=== PATIENT | male | born 1965 | race Asian ===

== ENCOUNTER 2022-02-11 17:10 | Emergency (ER) | payer SELFPAY ==
[~2022-02-11] VITALS: Ht 175.3 cm; Wt 70.3 kg
--- NOTE | 2022-02-11 17:36 | NUR ---
TO ER BED 19, BIBS C/O ABD PAIN W/ NAUSEA SINCE YESTERDAY, AAOX3, BREATHING EVEN AND NON LABORED.
--- NOTE | 2022-02-11 17:59 | NUR ---
UNABLE TO PROVIDE URINE AT THIS TIME
[2022-02-11 18:24] LABS: BILIRUBIN,URINE NEGATIVE (NEGATIVE); COLOR,URINE YELLOW (YELLOW); LEUKOCYTE ESTERASE ,URINE NEGATIVE (NEGATIVE); NITRITE, URINE NEGATIVE (NEGATIVE); PH,URINE 6.5 (5.0-8.0); PROTEIN,URINE NEGATIVE (NEGATIVE); UGLUCOSE NEGATIVE (NEGATIVE)
[2022-02-11 18:29] LABS: BASOPHILS % (AUTO) 0.9 % (0.0-2.0); EOSINOPHILS % (AUTO) 2.7 % (0.0-6.0); HEMATOCRIT 40 % (39-51); HEMOGLOBIN 12.6 g/dL (13.5-17.5); LYMPHOCYTES # (AUTO) 1.4 K/uL (0.8-4.8); MEAN CORPUSCULAR HGB CONC 32 g/dl (31.0-36.0); MEAN CORPUSCULAR VOLUME 90 fL (80-96); MONOCYTES # (AUTO) 0.5 K/uL (0.1-1.30); MONOCYTES % (AUTO) 9.1 % (2.0-12.0); NEUTROPHILS # (AUTO) 3.6 K/uL (1.8-8.9); NEUTROPHILS % (AUTO) 63.3 % (43.0-81.0); PLATELET COUNT (AUTO) 175 K/uL (150-450); RED BLOOD CELL COUNT(AUTO) 4.39 MIL/uL (4.5-6.0); WHITE BLOOD COUNT (AUTO) 5.7 K/uL (4.3-11.0)
[2022-02-11 18:40] LABS: CALCIUM, SERUM 8.7 mg/dL (8.5-10.1); CREATININE 1.2 mg/dL (0.6-1.3); POTASSIUM 4.2 mmol/L (3.5-5.1)
[2022-02-11 18:45] LABS: ALBUMIN 3.3 g/dL (3.4-5.0); BILIRUBIN,DIRECT 0.1 mg/dL (0.0-0.2); BILIRUBIN,TOTAL 0.4 mg/dL (0.2-1.0)
[2022-02-11 18:59] LABS: BACTERIA,URINE None seen /HPF (None Seen); RBC,URINE 0-2 /HPF (0-2); SQUAMOUS EPITHELIAL CELL,UR 0-2 /HPF (None Seen); WBC,URINE 0-2 /HPF (0-3)
--- NOTE | 2022-02-11 19:00 | NUR ---
TAKEN TO CT VIA WHEELCHAIR
[2022-02-11] MEDS ORDERED: IOHEXOL-300 100 ML VIAL IV ONE (19:01)
[2022-02-11] MEDS ORDERED: CT SWABBABLE VALVE TRANS SET 1 EA INFUS.SET MC ONE (19:01)
[2022-02-11] MEDS ORDERED: IV NS 0.9% 250 ML IV ONE (19:01)
[2022-02-11] MEDS ORDERED: ONDANSETRON HCL/PF 4 MG/2 ML VIAL IV ONE (20:00)
[2022-02-11] MEDS ORDERED: MORPHINE SULFATE INJ 2 MG/ML DISP.SYRIN IV ONE (20:00)
[2022-02-11] MEDS ORDERED: ONDANSETRON HCL/PF 4 MG/2 ML VIAL ONE (20:05)
[2022-02-11] MEDS ORDERED: MORPHINE SULFATE INJ 4 MG/ML DISP.SYRIN ONE (20:05)
--- NOTE | 2022-02-11 20:11 | NUR ---
WARM BLANKETS PROVIDED FOR COMFORT
[2022-02-11] MEDS ORDERED: HYDR-4209 PO (20:35)
[2022-02-11] MEDS ORDERED: ONDA4TAB5 PO (20:35)
[2022-02-11 20:48] VITALS: BP 140/70
--- NOTE | 2022-02-11 20:48 | NUR ---
Patient discharged to home in stable condition. Written and verbal after care instructions given. Patient verbalizes understanding of instruction.
== END 2022-02-11 20:48 | disposition home or self-care (01) ==
LOC: ER 17:14
DX: K40.90 Unilateral inguinal hernia, without obstruction or gangrene, not specified as recurrent (principal); R11.0 Nausea; K74.60 Unspecified cirrhosis of liver; F17.200 Nicotine dependence, unspecified, uncomplicated; Z59.00 Homelessness unspecified
CPT/HCPCS: 99285; 74177; 96374; 96375; 85025; 80048; 83690; 80076; 81001; 36415; J2270; J2405; J7050; Q9967

== ENCOUNTER 2022-02-15 07:19 | Emergency (ER) | payer SELFPAY ==
[~2022-02-15] VITALS: Ht 175.3 cm; Wt 72.6 kg
[~2022-02-15 07:19] MED LIST: HYDR-4209 PO; ONDA4TAB5 PO
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
--- NOTE | 2022-02-15 08:15 | NUR ---
DR PETE AT BEDSIDE FOR EVAL.
[2022-02-15] MEDS ORDERED: KETOROLAC TROMETHAMINE INJ 30 MG/ML VIAL IM ONE (08:30)
[2022-02-15] MEDS ORDERED: KETOROLAC TROMETHAMINE INJ 30 MG/ML VIAL ONE (08:55)
[2022-02-15] MEDS ORDERED: TRAM-351 PO (09:16)
[2022-02-15] MEDS ORDERED: IBUP-1957 PO (09:16)
--- NOTE | 2022-02-15 09:45 | NUR ---
Patient discharged to home in stable condition. Written and verbal after care instructions given. Patient verbalizes understanding of instruction.
[2022-02-15 09:58] VITALS: BP 146/98
== END 2022-02-15 09:59 | disposition home or self-care (01) ==
LOC: ER 07:22
DX: S30.1XXA Contusion of abdominal wall, initial encounter (principal); F17.200 Nicotine dependence, unspecified, uncomplicated; Z59.00 Homelessness unspecified; Z79.899 Other long term (current) drug therapy; W18.39XA Other fall on same level, initial encounter; Y93.89 Activity, other specified; Y92.89 Other specified places as the place of occurrence of the external cause; Y99.8 Other external cause status
CPT/HCPCS: 99283; 96372; J1885

== ENCOUNTER 2022-02-18 08:41 | Emergency (ER) | payer MEDICAID ==
[~2022-02-18] VITALS: Ht 175.3 cm; Wt 70.3 kg
[~2022-02-18 08:41] MED LIST changes: +IBUP-1957 PO; +TRAM-351 PO
[2022-02-18 09:19] LABS: BASOPHILS % (AUTO) 0.7 % (0.0-2.0); EOSINOPHILS % (AUTO) 2.1 % (0.0-6.0); HEMATOCRIT 39 % (39-51); HEMOGLOBIN 12.7 g/dL (13.5-17.5); LYMPHOCYTES # (AUTO) 1.2 K/uL (0.8-4.8); LYMPHOCYTES % (AUTO) 21.7 % (20.0-44.0); MEAN CORPUSCULAR HGB CONC 32 g/dl (31.0-36.0); MEAN CORPUSCULAR VOLUME 90 fL (80-96); MONOCYTES # (AUTO) 0.4 K/uL (0.1-1.30); MONOCYTES % (AUTO) 7.6 % (2.0-12.0); NEUTROPHILS # (AUTO) 3.7 K/uL (1.8-8.9); NEUTROPHILS % (AUTO) 67.9 % (43.0-81.0); PLATELET COUNT (AUTO) 149 K/uL (150-450); RED BLOOD CELL COUNT(AUTO) 4.38 MIL/uL (4.5-6.0); WHITE BLOOD COUNT (AUTO) 5.4 K/uL (4.3-11.0)
[2022-02-18 09:27] LABS: CALCIUM, SERUM 8.4 mg/dL (8.5-10.1); CREATININE 1.1 mg/dL (0.6-1.3); POTASSIUM 5.3 mmol/L (3.5-5.1)
[2022-02-18 09:40] LABS: ALBUMIN 3.2 g/dL (3.4-5.0); BILIRUBIN,TOTAL 0.7 mg/dL (0.2-1.0); TOTAL PROTEIN, SERUM 7.1 g/dL (6.4-8.2)
[2022-02-18 09:52] LABS: BILIRUBIN,DIRECT 0.1 mg/dL (0.0-0.2)
[2022-02-18] MEDS ORDERED: HYDROCODONE/APAP 5/325MG TABLET PO ONE (10:00)
[2022-02-18 10:57] VITALS: BP 146/108
== END 2022-02-18 10:57 | disposition home or self-care (01) ==
LOC: ER 08:45
DX: G89.29 Other chronic pain (principal); R10.9 Unspecified abdominal pain; K74.60 Unspecified cirrhosis of liver; K40.90 Unilateral inguinal hernia, without obstruction or gangrene, not specified as recurrent; E87.5 Hyperkalemia; F17.200 Nicotine dependence, unspecified, uncomplicated; Z59.00 Homelessness unspecified; Z79.899 Other long term (current) drug therapy
CPT/HCPCS: 36415; 80048-TC; 80076-TC; 83690-TC; 85025-TC

== ENCOUNTER 2022-02-18 14:58 | Emergency (ER) | payer MEDICAID ==
[~2022-02-18] VITALS: Ht 165.1 cm; Wt 63.5 kg
[2022-02-18 15:01] VITALS: BP 144/93
--- NOTE | 2022-02-18 15:14 | NUR ---
pt left, not seen by ermd provider.
== END 2022-02-18 15:18 | disposition left against medical advice (07) ==
LOC: ER 15:00
DX: Z53.21 Procedure and treatment not carried out due to patient leaving prior to being seen by health care provider (principal)

== ENCOUNTER 2022-03-27 03:19 | Emergency (ER) | payer MEDICAID ==
[~2022-03-27] VITALS: Ht 175.3 cm; Wt 72.6 kg
--- NOTE | 2022-03-27 04:27 | NUR ---
Nadia abraham in [facility] - 03/27/22 at 0438 by GIOVANY FREELANCE DATA ENTRY AT PT'S BEDSIDE
[2022-03-27] MEDS ORDERED: MORPHINE SULFATE INJ 2 MG/ML DISP.SYRIN IV ONE (04:30)
[2022-03-27] MEDS ORDERED: ASPIRIN EC 325 MG TABLET.DR PO ONE ×2 (04:30→05:07)
[2022-03-27] MEDS ORDERED: ONDANSETRON HCL/PF - ER 4 MG/2 ML VIAL IV ONE (04:30)
--- NOTE | 2022-03-27 04:38 | NUR ---
[id number] FROM THE STREETS FOR LOWER ABDOMINAL PAIN [id number] WITH VOMITTING. PT A/OX4. TOLERATING R/A WELL WITH NO RESP DISTRESS. PT AMBULATORY WITH STEADY GAIT. SAFETY MEASURES IN PLACE.
--- NOTE | 2022-03-27 04:45 | NUR ---
PT BEING TRANSPORTED TO CT
--- NOTE | 2022-03-27 04:48 | NUR ---
URINE COLLECTED AND SENT TO LAB
--- NOTE | 2022-03-27 04:52 | NUR ---
back from ct
--- NOTE | 2022-03-27 04:54 | NUR ---
NURSE LDR AT PT'S BEDSIDE
[2022-03-27 05:32] LABS: BASOPHILS # (AUTO) 0.1 K/uL (0.0-0.2); BASOPHILS % (AUTO) 1.8 % (0.0-2.0); EOSINOPHILS % (AUTO) 0.7 % (0.0-6.0); HEMATOCRIT 40 % (39-51); HEMOGLOBIN 12.9 g/dL (13.5-17.5); LYMPHOCYTES # (AUTO) 1.1 K/uL (0.8-4.8); LYMPHOCYTES % (AUTO) 18.3 % (20.0-44.0); MEAN CORPUSCULAR HGB CONC 33 g/dl (31.0-36.0); MEAN CORPUSCULAR VOLUME 91 fL (80-96); MONOCYTES # (AUTO) 0.5 K/uL (0.1-1.30); NEUTROPHILS # (AUTO) 4.2 K/uL (1.8-8.9); NEUTROPHILS % (AUTO) 70.2 % (43.0-81.0); PLATELET COUNT (AUTO) 187 K/uL (150-450); RED BLOOD CELL COUNT(AUTO) 4.35 MIL/uL (4.5-6.0)
[2022-03-27 05:41] LABS: CARBON DIOXIDE 29 mmol/L (21-32); CHLORIDE 99 mmol/L (98-107); CREATININE 1.3 mg/dL (0.6-1.3); GLUCOSE 83 mg/dL (74-106); POTASSIUM 3.6 mmol/L (3.5-5.1); SODIUM SERUM 136 mmol/L (136-145); UREA NITROGEN, BLOOD 34 mg/dL (7-18)
--- NOTE | 2022-03-27 06:19 | NUR ---
RAC #20G S/L BLOOD COLLECTED AND SENT TO LAB
--- NOTE | 2022-03-27 06:21 | NUR ---
US TECH AT BEDSIDE
--- NOTE | 2022-03-27 06:21 | NUR ---
US TECH AT PT'S BEDSIDE FOR US GALLBLADDER
[2022-03-27] MEDS ORDERED: MORPHINE SULFATE INJ 2 MG/ML DISP.SYRIN ONE (06:43)
[2022-03-27] MEDS ORDERED: ONDANSETRON HCL/PF 4 MG/2 ML VIAL ONE (06:43)
--- NOTE | 2022-03-27 07:15 | NUR ---
RECEVED PT FROM ERIKA MENDEZ
[2022-03-27 09:06] LABS: ALBUMIN 3.5 g/dL (3.4-5.0); BILIRUBIN,DIRECT 0.3 mg/dL (0.0-0.2); BILIRUBIN,TOTAL 0.9 mg/dL (0.2-1.0)
--- NOTE | 2022-03-27 09:15 | NUR ---
breakfast provided at bedside
--- NOTE | 2022-03-27 09:43 | NUR ---
Patient discharged to home in stable condition. Written and verbal after care instructions given. Patient verbalizes understanding of instruction.
[2022-03-27 09:52] VITALS: BP 140/90
== END 2022-03-27 09:53 | disposition home or self-care (01) ==
LOC: ER 03:20
DX: R10.84 Generalized abdominal pain (principal); R07.89 Other chest pain; I50.9 Heart failure, unspecified; F17.200 Nicotine dependence, unspecified, uncomplicated; Z59.00 Homelessness unspecified; Z79.899 Other long term (current) drug therapy
CPT/HCPCS: 99285; 74176; 96374; 76705; 71045; 96375; 93005; 85025; 80048; 83690; 80076; 36415; 84484 ×2; J2405 ×2; J2270

== ENCOUNTER 2022-04-02 11:47 | Emergency (ER) | payer MEDICAID ==
[~2022-04-02] VITALS: Ht 175.3 cm; Wt 70.3 kg
[2022-04-02] MEDS ORDERED: DOCU-141 PO (11:58)
--- NOTE | 2022-04-02 12:00 | NUR ---
PT SEEN BY MD AT BEDSIDE
--- NOTE | 2022-04-02 12:15 | NUR ---
homeless waiver and resources provided but refused by patient
--- NOTE | 2022-04-02 12:41 | NUR ---
Patient discharged to home in stable condition. Written and verbal after care instructions given. Patient verbalizes understanding of instruction.
[2022-04-02 12:42] VITALS: BP 125/80
== END 2022-04-02 12:43 | disposition home or self-care (01) ==
LOC: ER 11:49
DX: K40.90 Unilateral inguinal hernia, without obstruction or gangrene, not specified as recurrent (principal); F17.200 Nicotine dependence, unspecified, uncomplicated; Z60.2 Problems related to living alone; Z79.899 Other long term (current) drug therapy